=== PATIENT | female | born 1985 | race Caucasian/White ===

== ENCOUNTER 2019-08-15 11:47 | Emergency (ER) | payer BC ==
[2019-08-15] MEDS ORDERED: SODIUM CHLORIDE 0.9% 500 ML 500 ML IV ONE (12:07)
--- NOTE | 2019-08-15 12:10 | ED ---
General Adult HPI - General Chief complaint: Vaginal Bleeding Stated complaint: 11wks preg/vaginal bleeding Time Seen by Provider: 08/15/19 11:54 Source: patient, RN notes reviewed Mode of arrival: ambulatory Limitations: no limitations - History of Present Illness Initial comments: 34 year old currently 11 weeks with a LMP of 05/30/[address] Murray presents to the emergency department for vaginal bleeding. Patient states that last night she had some light spotting and then today she started having some heavier vaginal bleeding. States she is passing a few clots. Patient denies any abdominal pain associated with this. Patient did have an ultrasound at 7 weeks that confirmed an intrauterine . Patient thinks her blood type is A-. Patient denies any lightheadedness states she feels fine but is very nervous. Patient has no other complaints at this time including shortness of breath, chest pain, abdominal pain, nausea or vomiting, headache, or visual changes. - Related Data Allergies Allergy/AdvReac Type Severity Reaction Status Date / Time No Known Allergies Allergy Verified 08/15/19 11:53 Review of Systems ROS Statement: Those systems with pertinent positive or pertinent negative responses have been documented in the HPI. ROS Other: All systems not noted in ROS Statement are negative. Past Medical History Past Medical History: No Reported History History of Any Multi-Drug Resistant Organisms: None Reported Past Surgical History: No Surgical Hx Reported Past Psychological History: No Psychological Hx Reported Smoking Status: Never smoker Past Alcohol Use History: None Reported Past Drug Use History: None Reported General Exam Limitations: no limitations General appearance: alert, in no apparent distress Head exam: Present: atraumatic, normocephalic, normal inspection Eye exam: Present: normal appearance, PERRL, EOMI. Absent: scleral icterus, conjunctival injection, periorbital swelling ENT exam: Present: normal exam, mucous membranes moist Neck exam: Present: normal inspection, full ROM. Absent: tenderness, men ingismus Respiratory exam: Present: normal lung sounds bilaterally. Absent: respiratory distress, wheezes, rales, rhonchi, stridor Cardiovascular Exam: Present: regular rate, normal rhythm, normal heart sounds. Absent: systolic murmur, diastolic murmur, rubs, gallop, clicks GI/Abdominal exam: Present: soft, normal bowel sounds. Absent: distended, tenderness, guarding, rebound, rigid External exam: Present: normal external exam. Absent: erythema, swelling, lesions, lacerations, ecchymosis Speculum exam: Present: vaginal bleeding (minimal vaginal bleeding at time of exam). Absent: erythema, vaginal discharge, cervical discharge, foreign body, tissue, laceration By manual exam: Present: normal by manual exam. Absent: cervical motion tend erness, adnexal tenderness, adnexal mass, uterine enlargement, uterine tenderness Neurological exam: Present: alert Course Vital Signs 08/15/19 11:50 Temperature 98 F Pulse Rate 119 H Respiratory 18 Rate Blood Pressure 124/87 O2 Sat by Pulse 98 Oximetry Medical Decision Making - Medical Decision Making Vitals are stable. Patient initially tachycardic likely secondary to anxiety. Pelvic exam did not reveal any significant bleeding at this time. CBC CMP is unremarkable. Hemoglobin currently stable. Urinalysis is unremarkable. ultrasound shows a single viable intrauterine corresponding to ultrasound 811 weeks with estimated date of delivery 03/05/2020. Heart rate 168. At this time patient was diagnosed with threatened miscarriage. I do recommend she follows up closely with her PRIVATE TUTOR. She will return here for any worsening symptoms. - Lab Data Result diagrams: 08/15/19 12:40 08/15/19 12:40 Lab Results 08/15/19 08/15/19 08/15/19 Range/Units 12:40 12:40 12:40 WBC 7.8 (3.8-10.6) k/uL RBC 3.86 (3.80-5.40) m/uL Hgb 12.2 (11.4-16.0) gm/dL Hct 37.3 (34.0-46.0) % MCV 96.7 (80.0-100.0) fL MCH 31.5 (25.0-35.0) pg MCHC 32.6 (31.0-37.0) g/dL RDW 11.9 (11.5-15.5) % Plt Count 289 (150-450) k/uL Neutrophils % 81 % Lymphocytes % 13 % Monocytes % 4 % Eosinophils % 1 % Basophils % 0 % Neutrophils # 6.3 (1.3-7.7) k/uL Lymphocytes # 1.0 (1.0-4.8) k/uL Monocytes # 0.3 (0-1.0) k/uL Eosinophils # 0.1 (0-0.7) k/uL Basophils # 0.0 (0-0.2) k/uL Sodium 135 L (137-145) mmol/L Potassium 4.0 (3.5-5.1) mmol/L Chloride 105 (98-107) mmol/L Carbon Dioxide 23 (22-30) mmol/L Anion Gap 7 mmol/L BUN 7 (7-17) mg/dL Creatinine 0.48 L (0.52-1.04) mg/dL Est GFR (CKD-EPI)AfAm >90 (>60 ml/min/1.73 sqM) Est GFR (CKD-EPI)NonAf >90 (>60 ml/min/1.73 sqM) Glucose 109 H (74-99) mg/dL Calcium 9.3 (8.4-10.2) mg/dL Total Bilirubin 0.2 (0.2-1.3) mg/dL AST 15 (14-36) U/L ALT 22 (4-34) U/L Alkaline Phosphatase 54 (38-126) U/L Total Protein 6.5 (6.3-8.2) g/dL Albumin 3.7 (3.5-5.0) g/dL Urine Color Urine Appearance (Clear) Urine pH (5.0-8.0) Ur Specific [place] (1.001-1.035) Urine Protein (Negative) Urine Glucose (UA) (Negative) Urine Ketones (Negative) Urine Blood (Negative) Urine Nitrite (Negative) Urine Bilirubin (Negative) Urine Urobilinogen (<2.0) mg/dL Ur Leukocyte Esterase (Negative) Urine RBC (0-5) /hpf Ur Squamous Epith Cells (0-4) /hpf Urine Bacteria (None) /hpf Urine Mucus (None) /hpf Urine HCG, Qual (Not Detectd) Blood Type A Negative Blood Type Recheck No Previous Record Bld Type Recheck Status CABO Indicated 08/15/19 08/15/19 Range/Units 12:43 12:44 WBC (3.8-10.6) k/uL RBC (3.80-5.40) m/uL Hgb (11.4-16.0) gm/dL Hct (34.0-46.0) % MCV (80.0-100.0) fL MCH (25.0-35.0) pg MCHC (31.0-37.0) g/dL RDW (11.5-15.5) % Plt Count (150-450) k/uL Neutrophils % % Lymphocytes % % Monocytes % % Eosinophils % % Basophils % % Neutrophils # (1.3-7.7) k/uL Lymphocytes # (1.0-4.8) k/uL Monocytes # (0-1.0) k/uL Eosinophils # (0-0.7) k/uL Basophils # (0-0.2) k/uL Sodium (137-145) mmol/L Potassium (3.5-5.1) mmol/L Chloride (98-107) mmol/L Carbon Dioxide (22-30) mmol/L Anion Gap mmol/L BUN (7-17) mg/dL Creatinine (0.52-1.04) mg/dL Est GFR (CKD-EPI)AfAm (>60 ml/min/1.73 sqM) Est GFR (CKD-EPI)NonAf (>60 ml/min/1.73 sqM) Glucose (74-99) mg/dL Calcium (8.4-10.2) mg/dL Total Bilirubin (0.2-1.3) mg/dL AST (14-36) U/L ALT (4-34) U/L Alkaline Phosphatase (38-126) U/L Total Protein (6.3-8.2) g/dL Albumin (3.5-5.0) g/dL Urine Color Light Yellow Urine Appearance Clear (Clear) Urine pH 5.5 (5.0-8.0) Ur Specific [place] 1.008 (1.001-1.035) Urine Protein Negative (Negative) Urine Glucose (UA) Negative (Negative) Urine Ketones Negative (Negative) Urine Blood Moderate H (Negative) Urine Nitrite Negative (Negative) Urine Bilirubin Negative (Negative) Urine Urobilinogen <2.0 (<2.0) mg/dL Ur Leukocyte Esterase Negative (Negative) Urine RBC 2 (0-5) /hpf Ur Squamous Epith Cells <1 (0-4) /hpf Urine Bacteria Rare H (None) /hpf Urine Mucus Rare H (None) /hpf Urine HCG, Qual Detected (Not Detectd) Blood Type Blood Type Recheck Bld Type Recheck Status Disposition Clinical Impression: Threatened miscarriage Disposition: HOME SELF-CARE Condition: Fair Instructions (If sedation given, give patient instructions): Threatened Miscarriage (ED) Additional Instructions: Please follow up with [facility]IVATE T[facility]OR in one to 2 days. If you have any worsening symptoms return here to the emergency room. Is patient prescribed a controlled substance at d/c from ED?: No Referrals: Denys Murray MD [STAFF PHYSICIAN] - 1-2 days Time of Disposition: 14:18
[2019-08-15 13:05] LABS: Basophils % (A) 0 %; Eosinophils # (A) 0.1 k/uL (0-0.7); Eosinophils % (A) 1 %; HCT 37.3 % (34.0-46.0); HGB 12.2 gm/dL (11.4-16.0); Lymphocytes % (A) 13 %; MCH 31.5 pg (25.0-35.0); MCHC 32.6 g/dL (31.0-37.0); MCV 96.7 fL (80.0-100.0); Mean Platelet Volume 7.8; Monocytes # (A) 0.3 k/uL (0-1.0); Monocytes % (A) 4 %; Neutrophils # (A) 6.3 k/uL (1.3-7.7); Neutrophils % (A) 81 %; Platelet Count 289 k/uL (150-450); RBC 3.86 m/uL (3.80-5.40); RDW 11.9 % (11.5-15.5); WBC 7.8 k/uL (3.8-10.6)
[2019-08-15 13:08] LABS: Appearance,Urine Clear (Clear); Bacteria,Urine Rare /hpf; Bilirubin,Urine Negative (Negative); Blood,Urine Moderate (Negative); Color,Urine Light Yellow; Glucose,Urine (UA) Negative (Negative); Ketones,Urine Negative (Negative); Leukocyte Esterase,Urine Negative (Negative); Mucus,Urine Rare /hpf; Nitrite,Urine Negative (Negative); PH, Urine 5.5 (5.0-8.0); Protein,Urine Negative (Negative); RBC,Urine 2 /hpf (0-5); Specific Gravity,Urine 1.008 (1.001-1.035); Squamous Epithelial Cell,Urine <1 /hpf (0-4); Urobilinogen,Urine <2.0 mg/dL (<2.0)
--- NOTE | 2019-08-15 13:24 | US ---
EXAMINATION TYPE: Transabdominal DATE OF EXAM: 08/15/2019 1:01 PM COMPARISON: NONE CLINICAL HISTORY: bleeding. EXAM PERFORMED: Transabdominal (TA) EXAM MEASUREMENTS: GESTATIONAL AGE / DATING Physician Established: (11 weeks/0 days) EDC: 03/05/2020 Dates by LMP: (11 weeks/0 days) EDC: 03/05/2020 Dates by First Scan: No previous this is first scan ( Dates by Current Scan for: (11 weeks/0 days) EDC: 03/05/2020 MATERNAL ANATOMY Uterus: 10.8 x 6.5 x 8.3 cm Right Ovary: 2.3 x 1.4 x 1.8 cm Left Ovary: 2.2 x 1.3 x 1.4 cm Post CDS / Adnexa: wnl Presence of free fluid: No Presence of corpus luteal cyst: No Presence of subchorionic bleed: No GESTATION / SURVEY CRL: 4.1 cm (11 weeks/0 days) Yolk Sac (normal less than 6mm): 5 mm Heart Rate: 168 bpm Rhythm: Normal IUP: Viable IUP Date of LMP: Unsure Beta HcG (if available): Not available at this time Viable IUP, measurements consistent with dates. IMPRESSION: Single viable intrauterine corresponding to ultrasound age 11 weeks 0 days with estimated d ate of delivery 03/05/2020 by today's exam.
[2019-08-15 13:25] LABS: ALT 22 U/L (4-34); AST 15 U/L (14-36); African American GFR (CKD) >90 (>60 ml/min/1.73 sqM); Albumin 3.7 g/dL (3.5-5.0); Alkaline Phosphatase 54 U/L (38-126); Anion Gap 7 mmol/L; Blood Urea Nitrogen 7 mg/dL (7-17); Calcium 9.3 mg/dL (8.4-10.2); Carbon Dioxide 23 mmol/L (22-30); Chloride 105 mmol/L (98-107); Glucose 109 mg/dL (74-99); Non-African American GFR(CKD) >90 (>60 ml/min/1.73 sqM); Sodium 135 mmol/L (137-145); Total Bilirubin 0.2 mg/dL (0.2-1.3); Total Protein 6.5 g/dL (6.3-8.2)
[2019-08-15] MEDS ORDERED: Rhogam IMMUNE GLOBULIN 1,500 UNIT/1 ML IM ONE (14:02)
[2019-08-15 15:58] VITALS: BP 118/68; PULSE 85; RESP 17; TEMP 98.2
[2019-08-18 12:53] LABS: C. trachomatis,PCR Negative (Neg,Equiv); Chlamydia trachomatis Source Vagina; N. gonorrhoeae,PCR Negative (Neg,Equiv); Neisseria Source Vagina
== END 2019-08-15 15:58 | disposition home or self-care (01) ==
LOC: EC 11:47
DX: O20.0 Threatened abortion (principal); O99.341 Other mental disorders complicating pregnancy, first trimester; F41.9 Anxiety disorder, unspecified; Z3A.11 11 weeks gestation of pregnancy
CPT/HCPCS: 99284; 96360; 96372; 36415; 86900; 86901; 80053; 85025; 86850; 81001; 81025; 84702; 87491; 87591; 87070; 76801; J2791

== ENCOUNTER 2019-08-16 14:51 | Emergency (ER) | payer BC ==
[2019-08-16 15:00] VITALS: RESP 18
[2019-08-16 16:01] LABS: Basophils % (A) 0 %; Eosinophils # (A) 0.1 k/uL (0-0.7); Eosinophils % (A) 2 %; HCT 36.8 % (34.0-46.0); HGB 12.9 gm/dL (11.4-16.0); Lymphocytes # (A) 1.1 k/uL (1.0-4.8); Lymphocytes % (A) 11 %; MCHC 35.1 g/dL (31.0-37.0); MCV 96.9 fL (80.0-100.0); Mean Platelet Volume 7.9; Monocytes # (A) 0.3 k/uL (0-1.0); Monocytes % (A) 3 %; Neutrophils # (A) 7.8 k/uL (1.3-7.7); Neutrophils % (A) 83 %; Platelet Count 288 k/uL (150-450); RBC 3.79 m/uL (3.80-5.40); WBC 9.4 k/uL (3.8-10.6)
[2019-08-16 16:04] LABS: Appearance,Urine Clear (Clear); Bilirubin,Urine Negative (Negative); Blood,Urine Moderate (Negative); Color,Urine Yellow; Glucose,Urine (UA) Negative (Negative); Ketones,Urine Negative (Negative); Leukocyte Esterase,Urine Negative (Negative); Mucus,Urine Rare /hpf; Nitrite,Urine Negative (Negative); PH, Urine 5.5 (5.0-8.0); Protein,Urine Negative (Negative); RBC,Urine 93 /hpf (0-5); Specific Gravity,Urine 1.018 (1.001-1.035); Urobilinogen,Urine <2.0 mg/dL (<2.0); WBC,Urine 1 /hpf (0-5)
[2019-08-16 16:13] LABS: INR 0.9 (<1.2); Partial Thromboplastin Time 22.1 sec (22.0-30.0); Prothrombin Time 9.3 sec (9.0-12.0)
[2019-08-16 16:25] LABS: ALT 17 U/L (4-34); AST 16 U/L (14-36); African American GFR (CKD) >90 (>60 ml/min/1.73 sqM); Albumin 3.7 g/dL (3.5-5.0); Alkaline Phosphatase 55 U/L (38-126); Anion Gap 8 mmol/L; Blood Urea Nitrogen 8 mg/dL (7-17); Calcium 9.4 mg/dL (8.4-10.2); Carbon Dioxide 21 mmol/L (22-30); Chloride 106 mmol/L (98-107); Glucose 130 mg/dL (74-99); Non-African American GFR(CKD) >90 (>60 ml/min/1.73 sqM); Potassium 3.9 mmol/L (3.5-5.1); Sodium 135 mmol/L (137-145); Total Bilirubin <0.1 mg/dL (0.2-1.3); Total Protein 6.6 g/dL (6.3-8.2)
--- NOTE | 2019-08-16 17:22 | ED ---
General Adult HPI - General Chief complaint: Vaginal Bleeding Stated complaint: 11 weeks , Vaginal bleeding Time Seen by Provider: 08/16/19 15:11 Source: patient - History of Present Illness Initial comments: The patient is a 34-year-old female who is currently 11 weeks presents to the emergency room with report of vaginal bleeding. Patient was seen previously in the emergency department for similar complaint yesterday. She did have an ultrasound performed which demonstrated a viable intrauterine dated around 11 weeks. She was given Rhogam for her negative blood type. States that she went home and continued to have bleeding overnight. Bleeding to get heavier this morning for which she passed clots and what she thought was tissue. She denies any abdominal or pelvic pain. No fevers or chills. No nausea or vomiting denies any abdominal trauma. He contacted her [employer]ANT. Denies any lightheadedness or shortness of breath. No other alleviating, precipitating or modifying factors - Related Data Allergies Allergy/AdvReac Type Severity Reaction Status Date / Time No Known Allergies Allergy Verified 08/16/19 15:00 Review of Systems ROS Statement: Those systems with pertinent positive or pertinent negative responses have been documented in the HPI. ROS Other: All systems not noted in ROS Statement are negative. Past Medical History Past Medical History: No Reported History History of Any Multi-Drug Resistant Organisms: None Reported Past Surgical History: No Surgical Hx Reported Past Psychological History: No Psychological Hx Reported Smoking Status: Never smoker Past Alcohol Use History: None Reported Past Drug Use History: None Reported General Exam General appearance: alert, in no apparent distress Head exam: Present: atraumatic, normocephalic, normal inspection Eye exam: Present: normal appearance, PERRL, EOMI. Absent: scleral icterus, conjunctival injection, periorbital swelling ENT exam: Present: normal exam, mucous membranes moist Neck exam: Present: normal inspection. Absent: tenderness, meningismus, lymphadenopathy Respiratory exam: Present: normal lung sounds bilaterally. Absent: respiratory distress, wheezes, rales, rhonchi, stridor Cardiovascular Exam: Present: regular rate, normal rhythm, normal heart sounds. Absent: systolic murmur, diastolic murmur, rubs, gallop, clicks GI/Abdominal exam: Present: soft, normal bowel sounds. Absent: distended, tenderness, guarding, rebound, rigid External exam: Present: normal external exam. Absent: erythema, swelling, lesions, lacerations, ecchymosis Speculum exam: Present: vaginal bleeding, tissue, other (os appears opening and exuding small dark clots). Absent: foreign body, laceration Extremities exam: Present: normal inspection, full ROM, normal capillary refill. Absent: tenderness, pedal edema, joint swelling, calf tenderness Back exam: Present: normal inspection Neurological exam: Present: alert, oriented X3, CN II-XII intact Psychiatric exam: Present: normal affect, normal mood Skin exam: Present: warm, dry, intact, normal color. Absent: rash Course Vital Signs 08/16/19 08/16/19 14:56 17:37 Temperature 98.7 F 98.2 F Pulse Rate 91 88 Respiratory 18 18 Rate Blood Pressure 120/79 107/71 O2 Sat by Pulse 98 100 Oximetry Medical Decision Making - Medical Decision Making Upon arrival the patient was placed into room 22. A thorough history and physical exam was performed. I did repeat laboratory studies in the patient. At bedside ultrasound was performed which demonstrated an intrauterine with positive heart tones at 136 bpm. Positive movement. Laboratory studies demonstrate a hemoglobin of 12.9. The patient's previous 12.2. Urinalysis shows moderate blood with 93 red blood cells. Beta Quant has fallen some to 70,745. Pelvic was performed under sterile conditions which does demonstrate a small amount of blood. Os does appear open with a small amount of clotted blood protruding. I discussed diagnosis, differential and treatment options. I recommended pelvic rest at home. She is to follow-up with her OBGYN in regards to her vaginal bleeding within 2-[address] Murray is aware of her current state. I informed her about the concerning for miscarriage at this time and the need for strict return parameters. Return parameters were discussed with the patient. She understood this. If she has any new or worsening symptoms she should return to the emergency room. Patient agreement with the t reatment plan she is discharged home in stable condition - Lab Data Result diagrams: 08/16/19 15:45 08/16/19 15:45 Lab Results 08/16/19 08/16/19 08/16/19 Range/Units 15:45 15:45 15:45 WBC 9.4 (3.8-10.6) k/uL RBC 3.79 L (3.80-5.40) m/uL Hgb 12.9 (11.4-16.0) gm/dL Hct 36.8 (34.0-46.0) % MCV 96.9 (80.0-100.0) fL MCH 34.0 (25.0-35.0) pg MCHC 35.1 (31.0-37.0) g/dL RDW 12.0 (11.5-15.5) % Plt Count 288 (150-450) k/uL Neutrophils % 83 % Lymphocytes % 11 % Monocytes % 3 % Eosinophils % 2 % Basophils % 0 % Neutrophils # 7.8 H (1.3-7.7) k/uL Lymphocytes # 1.1 (1.0-4.8) k/uL Monocytes # 0.3 (0-1.0) k/uL Eosinophils # 0.1 (0-0.7) k/uL Basophils # 0.0 (0-0.2) k/uL PT (9.0-12.0) sec INR (<1.2) APTT (22.0-30.0) sec Sodium 135 L (137-145) mmol/L Potassium 3.9 (3.5-5.1) mmol/L Chloride 106 (98-107) mmol/L Carbon Dioxide 21 L (22-30) mmol/L Anion Gap 8 mmol/L BUN 8 (7-17) mg/dL Creatinine 0.43 L (0.52-1.04) mg/dL Est GFR (CKD-EPI)AfAm >90 (>60 ml/min/1.73 sqM) Est GFR (CKD-EPI)NonAf >90 (>60 ml/min/1.73 sqM) Glucose 130 H (74-99) mg/dL Calcium 9.4 (8.4-10.2) mg/dL Total Bilirubin <0.1 L (0.2-1.3) mg/dL AST 16 (14-36) U/L ALT 17 (4-34) U/L Alkaline Phosphatase 55 (38-126) U/L Total Protein 6.6 (6.3-8.2) g/dL Albumin 3.7 (3.5-5.0) g/dL HCG, Quant 46422.2 mIU/mL Urine Color Yellow Urine Appearance Clear (Clear) Urine pH 5.5 (5.0-8.0) Ur Specific [place] 1.018 (1.001-1.035) Urine Protein Negative (Negative) Urine Glucose (UA) Negative (Negative) Urine Ketones Negative (Negative) Urine Blood Moderate H (Negative) Urine Nitrite Negative (Negative) Urine Bilirubin Negative (Negative) Urine Urobilinogen <2.0 (<2.0) mg/dL Ur Leukocyte Esterase Negative (Negative) Urine RBC 93 H (0-5) /hpf Urine WBC 1 (0-5) /hpf Urine Mucus Rare H (None) /hpf 08/16/19 Range/Units 15:45 WBC (3.8-10.6) k/uL RBC (3.80-5.40) m/uL Hgb (11.4-16.0) gm/dL Hct (34.0-46.0) % MCV (80.0-100.0) fL MCH (25.0-35.0) pg MCHC (31.0-37.0) g/dL RDW (11.5-15.5) % Plt Count (150-450) k/uL Neutrophils % % Lymphocytes % % Monocytes % % Eosinophils % % Basophils % % Neutrophils # (1.3-7.7) k/uL Lymphocytes # (1.0-4.8) k/uL Monocytes # (0-1.0) k/uL Eosinophils # (0-0.7) k/uL Basophils # (0-0.2) k/uL PT 9.3 (9.0-12.0) sec INR 0.9 (<1.2) APTT 22.1 (22.0-30.0) sec Sodium (137-145) mmol/L Potassium (3.5-5.1) mmol/L Chloride (98-107) mmol/L Carbon Dioxide (22-30) mmol/L Anion Gap mmol/L BUN (7-17) mg/dL Creatinine (0.52-1.04) mg/dL Est GFR (CKD-EPI)AfAm (>60 ml/min/1.73 sqM) Est GFR (CKD-EPI)NonAf (>60 ml/min/1.73 sqM) Glucose (74-99) mg/dL Calcium (8.4-10.2) mg/dL Total Bilirubin (0.2-1.3) mg/dL AST (14-36) U/L ALT (4-34) U/L Alkaline Phosphatase (38-126) U/L Total Protein (6.3-8.2) g/dL Albumin (3.5-5.0) g/dL HCG, Quant mIU/mL Urine Color Urine Appearance (Clear) Urine pH (5.0-8.0) Ur Specific [place] (1.001-1.035) Urine Protein (Negative) Urine Glucose (UA) (Negative) Urine Ketones (Negative) Urine Blood (Negative) Urine Nitrite (Negative) Urine Bilirubin (Negative) Urine Urobilinogen (<2.0) mg/dL Ur Leukocyte Esterase (Negative) Urine RBC (0-5) /hpf Urine WBC (0-5) /hpf Urine Mucus (None) /hpf Disposition Clinical Impression: Threatened miscarriage Disposition: HOME SELF-CARE Condition: Stable Instructions (If sedation given, give patient instructions): Threatened Miscarriage (ED) Additional Instructions: Please follow-up with Dr. Murray on Sunday. Remain on pelvic rest. Return to the emergency department for any new or worsening symptoms Is patient prescribed a controlled substance at d/c from ED?: No Referrals: Denys Murray MD [STAFF PHYSICIAN] - 1-2 days None,Stated [Primary Care Provider] - 1-2 days Time of Disposition: 17:22
[2019-08-16 17:38] VITALS: BP 107/71; PULSE 88; TEMP 98.2
[2019-08-16 17:42] LABS: HCG,Quantitative Serum 70745.2 mIU/mL
== END 2019-08-16 17:39 | disposition home or self-care (01) ==
LOC: EC 14:51
DX: O20.0 Threatened abortion (principal); Z3A.11 11 weeks gestation of pregnancy
CPT/HCPCS: 36415; 80053; 81001; 84702; 85025; 85610; 85730; 99284

== ENCOUNTER 2020-03-05 14:54 | Inpatient (IN) | payer BC ==
[2020-03-09] MEDS ORDERED: TERBUTALINE 1 MG/ML VIAL SQ PRN (06:35)
[2020-03-09] MEDS ORDERED: LIDOCAINE 0.5% (PF) 5 MG/ML (50 ML SDV) SQ PRN (06:35)
[2020-03-09] MEDS ORDERED: METHYLERGONOVINE 0.2 MG/ML 1 ML AMP IM PRN (06:35)
[2020-03-09] MEDS ORDERED: OXYTOCIN 10 UNIT/ML 1 ML VIAL IM PRN (06:35)
[2020-03-09] MEDS ORDERED: CARBOPROST TROMETHAMINE 250 MCG/ML 1 ML AMP IM PRN (06:35)
[2020-03-09] MEDS ORDERED: OXYTOCIN 30 UNITS/500 ML NS 30 UNIT in SALINE 1 500ML.BAG IV SCH (06:45)
[2020-03-09] MEDS: LACTATED RINGERS 1,000 ML IV SCH ×2 (07:04→12:29)
[2020-03-09 07:20] LABS: Basophils % (A) 0 %; Eosinophils # (A) 0.1 k/uL (0-0.7); Eosinophils % (A) 0 %; HCT 35.3 % (34.0-46.0); HGB 12.5 gm/dL (11.4-16.0); Lymphocytes # (A) 1.3 k/uL (1.0-4.8); Lymphocytes % (A) 11 %; MCH 33.9 pg (25.0-35.0); MCHC 35.3 g/dL (31.0-37.0); MCV 95.9 fL (80.0-100.0); Mean Platelet Volume 8.2; Monocytes # (A) 0.5 k/uL (0-1.0); Monocytes % (A) 5 %; Neutrophils # (A) 9.4 k/uL (1.3-7.7); Neutrophils % (A) 82 %; Platelet Count 237 k/uL (150-450); RBC 3.69 m/uL (3.80-5.40); RDW 13.3 % (11.5-15.5); WBC 11.4 k/uL (3.8-10.6)
[2020-03-09] MEDS ORDERED: BUTORPHANOL 1 MG/ML 1 ML VIAL IV PRN (08:43)
--- NOTE | 2020-03-09 08:48 | P.HPOB ---
History of Present Illness H&P Date: 03/09/20 Chief Complaint: 40-4/7 weeks, induction The patient is a 35-year-old 1 para 0 admitted at 40-4/7 weeks as established by last menstrual period and confirmed by seven-week ultrasound. She is admitted for postdates induction of labor with all signs reassuring. Her has been entirely uncomplicated and group B strep status is negative. On labor and delivery, all signs reassuring with a category 1 heart rate tracing. She does fall into the category of advanced maternal age and declined testing for trisomy. She is additionally Rh- and received RhoGAM twice during the , once in the early first trimester for bleeding and then again at the standard time of 28 weeks. Obstetrical history: 1 para 0 with current statistics listed in history present illness. EDC of 03/05/2020 was established by last menstrual period and confirmed by seven-week ultrasound. Laboratory workup demonstrates a blood type of A- with a positive antibody screen for anti-D secondary to RhoGAM given early in the . Rubella status is immune. The remainder of the laboratory workup was within normal limits aside from elevated 1 hour Glucola followed by a normal three-hour glucose tolerance test. Group B strep status is negative. Gynecologic history: Unremarkable with no history of any infections to include STDs. Review of Systems Review of systems is confined to history of present illness. Past Medical History Past Medical History: No Reported History History of Any Multi-Drug Resistant Organisms: None Reported Past Surgical History: No Surgical Hx Reported Additional Past Surgical History / Comment(s): Fosters tooth extraction Past Anesthesia/Blood Transfusion Reactions: No Reported Reaction Past Psychological History: No Psychological Hx Reported Smoking Status: Never smoker Past Alcohol Use History: None Reported Past Drug Use History: None Reported - Past Family History Father Family Medical History: Diabetes Mellitus, GERD/Reflux Additional Family Medical History / Comment(s): Neuropathy Mother Family Medical History: Asthma, GERD/Reflux Medications and Allergies Home Medications Medication Instructions Recorded Confirmed Type Pnv No.95/Ferrous Fum/Folic AC 1 each PO DAILY 03/09/20 03/09/20 History [ Multivitamin Tablet] Allergies Allergy/AdvReac Type Severity Reaction Status Date / Time No Known Allergies Allergy Verified 03/09/20 06:34 Exam Vital Signs Temp Pulse Resp BP 03/09/20 06:36 97.5 F L 106 H 16 124/71 Intake and Output 03/08/20 03/09/20 03/09/20 22:59 06:59 14:59 Other: Weight 102.058 kg In general, this is a well-developed, well-nourished white female in no acute distress. Her heart has a regular rhythm and rate without murmur. Her lungs are clear to auscultation bilaterally in all mccrary. Her abdomen is gravid, nondistended, has normal active bowel sounds, is soft, nontender, and without any palpable masses aside from the uterine fundus. Her extremities are without any cyanosis, clubbing, or edema and are nontender to palpation bilaterally. Digital cervical examination demonstrates her cervix to be 2 cm dilated, 60% effaced, the vertex in presentation at -2 station. Artificial rupture of membranes is carried out demonstrating clear fluid. Results Result Diagrams: 03/09/20 07:03 Abnormal Lab Results - Last 24 Hours (Table) 03/09/20 Range/Units 07:03 WBC 11.4 H (3.8-10.6) k/uL RBC 3.69 L (3.80-5.40) m/uL Neutrophils # 9.4 H (1.3-7.7) k/uL Assessment and Plan (1) Post-dates Current Visit: Yes Status: Acute Code(s): O48.0 - POST-TERM SNOMED Code(s): 11139098 Plan: Pitocin augmentation has been started and artificial rupture of membranes carried out. She will have close maternal and surveillance and expectant management will be practiced. She is a good candidate for either IV or epidural analgesia, whichever she may choose.
[2020-03-09] MEDS ORDERED: SODIUM CHLORIDE 0.9% 100 ML BAG ONE (12:24)
[2020-03-09] MEDS ORDERED: ROPIVACAINE 5MG/ML 20ML VIAL ONE (12:24)
[2020-03-09] MEDS ORDERED: fentaNYL (PF) 50 MCG/ML 5 ML AMP ONE (12:24)
[2020-03-09] MEDS ORDERED: CITRIC ACID-SODIUM CITRATE 15 ML CUP PO ONE (20:46)
[2020-03-09] MEDS ORDERED: OXYTOCIN 10 UNIT/ML 1 ML VIAL ONE (20:58)
[2020-03-09] MEDS ORDERED: KETOROLAC 15 MG/ML 1 ML VIAL ONE (20:58)
[2020-03-09] MEDS ORDERED: ONDANSETRON 4 MG/2 ML VIAL ONE (20:58)
[2020-03-09] MEDS ORDERED: PHENYLEPHRINE 10 MG/ML VIAL ONE (20:58)
[2020-03-09] MEDS ORDERED: CHLOROPROCAINE 3% 30 MG/ML 20 ML VIAL ONE (20:58)
[2020-03-09] MEDS ORDERED: NALBUPHINE 10 MG/ML (1 ML AMP) IV PRN (21:20)
[2020-03-09] MEDS ORDERED: ONDANSETRON 4 MG/2 ML VIAL IVP PRN ×2 (21:20→21:49)
[2020-03-09] MEDS ORDERED: NALOXONE 0.4 MG/ML 1 ML VIAL IV PRN (21:20)
[2020-03-09] MEDS ORDERED: diphenhydrAMINE 50 MG/ML 1 ML VIAL IVP PRN ×3 (21:20→21:49)
[2020-03-09] MEDS ORDERED: HYDROmorphone 0.5 MG/0.5 ML SYRINGE IVP PRN (21:20)
[2020-03-09] MEDS ORDERED: LANOLIN CREAM 5 GM TUBE TOPICAL PRN (21:49)
[2020-03-09] MEDS ORDERED: diphenhydrAMINE 25 MG CAP PO PRN (21:49)
[2020-03-09] MEDS ORDERED: diphenhydrAMINE 50 MG CAP PO PRN (21:49)
[2020-03-09] MEDS ORDERED: IBUPROFEN 600 MG TAB PO PRN (21:49)
[2020-03-09] MEDS ORDERED: HYDROcodone/APAP 7.5-325MG 1 EACH TAB PO PRN (21:49)
[2020-03-09] MEDS ORDERED: ACETAMINOPHEN TAB 325 MG TAB PO PRN (21:49)
[2020-03-09] MEDS ORDERED: SIMETHICONE 80 MG CHEWABLE PO PRN (21:49)
[2020-03-09] MEDS ORDERED: HYDROcodone/APAP 5-325MG 1 EACH TAB PO PRN (21:49)
[2020-03-09] MEDS ORDERED: METOCLOPRAMIDE 5 MG/ML 2 ML VIAL IVP PRN (21:49)
[2020-03-09] MEDS ORDERED: ZOLPIDEM 5 MG TAB PO PRN (21:49)
--- NOTE | 2020-03-09 21:59 | P.OP ---
Date of Procedure: 03/09/20 Preoperative Diagnosis: #1. 40-4/7 weeks intrauterine #2. Rh- #3. Arrest of descent #4. occiput posterior Postoperative Diagnosis: Same Procedure(s) Performed: #1. Primary low-transverse section Anesthesia: epidural Surgeon: Denys Murray Electrician Yard #1: Basilia Payne Estimated Blood Loss (ml): 600 IV fluids (ml): 900 Urine output (ml): 50 Pathology: none sent Condition: stable Disposition: floor Operative Findings: Preoperatively, the patient had reached complete and had been pushing for approximate 45 minutes or and hour with no descent of the station below 0 station. She was felt to have a very narrow pelvic arch and the fetus was thought to be in left occiput posterior position. Given the findings, the patient was given the option and agreed to proceed with primary low-transverse section. She was taken the operating room where she was delivered of a viable 8 lbs. 5 oz. baby boy with Apgars of 9 at 1 minute and 9 at 5 minutes delivered in the left occiput posterior position. There was a loose nuchal cord 1 which was reduced following delivery of the head. The placenta was delivered manually, intact, and grossly normal with a grossly normal three-vessel cord. The uterus, tubes, and ovaries were entirely normal to inspection. Following the procedure the urine was either slightly blood-tinged or extremely concentrated which was the case prior to the procedure as well. Description of Procedure: The patient was prepped and draped in usual fashion after epidural anesthesia was bolused by the anesthesiologist. A Pfannenstiel incision was made and extended into the abdominal cavity without difficulty. The bladder peritoneum was elevated, incised, and reflected distally as it was very high within the incisional area. A 2 cm incision was made in the transverse plane of the lower uterine segment to enter the uterus at which time clear fluid was again noted. The head was encountered deep within the pelvis in the left occiput posterior position. It was delivered up and through the incision where the nose and mouth were thoroughly suctioned. The nuchal cord was reduced and the remainder of the infant delivered onto the field where the cord was doubly clamped, cut, and the infant passed for resuscitative measures with weight and Apgars as noted above. The placenta was delivered manually and intact as noted above. The uterus was exteriorized and the interior cavity of the uterus swept of any remaining placental or membranous fragments. The margins of the incision were grasped with Fernández clamps and the incision closed in 2 layers. The first layer was a running locking stitch of 0 chromic catgut followed by a running imbricating layer of 0 chromic catgut. The last few stitches of the right angle were locked as well secondary to a small hematoma noted developed just above the incision. Observation of the hematoma demonstrated to not be expanding. The posterior cul-de-sac was suctioned with a guard and the uterine and ovarian findings are normal as noted above. The uterus was replaced within the abdominal cavity and the gutters swept of any remaining blood, fluid, or clot. The incision was reexamined and any small points of bleeding made hemostatic with the Bovie. Once hemostasis was achieved, the parietal peritoneum was loosely reapproximated and the layer of muscles examined and made hemostatic with the Bovie. The fascia was closed with 2 running stitches of 0 Vicryl proceeding from the lateral margins to the midpoint. The subcutaneous tissues were irrigated, made hemostatic with the Bovie, and reapproximated with a running stitch of 30 plain catgut. The skin was reapproximated with a running subcuticular stitch of 4-0 Vicryl from margin to margin followed by half-inch Steri-Strips placed with Mastisol. Estimated blood loss for the case was approximate 600 mL. There were no complications. All sponge, instrument, and needle counts were correct. The patient tolerated the procedure well and proceeded to the recovery room in stable condition. Both mother and infant are resting comfortably in recovery.
[2020-03-09] MEDS ORDERED: OXYTOCIN 20 UNITS/1000 ML NS 1,000 ML IV SCH (22:00)
[2020-03-10 01:09] VITALS: RESP 16
[2020-03-10] MEDS: KETOROLAC 15 MG/ML 1 ML VIAL IVP PRN ×3 (04:30→19:57)
[2020-03-10] MEDS: LACTATED RINGERS 1,000 ML IV SCH ×3 (05:31→12:36)
--- NOTE | 2020-03-10 06:05 | P.PN ---
Progress Note - Text Progress Note Date: 03/10/20 Patient's postop day 1 from surgery and . Her in situ epidural was used for the surgery and section. At the end of the surgery and section 3 mg of preservative-free morphine were given in the epidural space. The epidural was discontinued. The patient did very well. She is comfortable this morning. She has had return of bowel and bladder function. She is able to ambulate. Pain is 2 out of 10 with ambulation. She is received 15 mg of Toradol for pain. There is mild pruritus. Her VAS is 2 out of 10 today
[2020-03-10 06:58] LABS: Basophils % (A) 0 %; Eosinophils % (A) 0 %; HCT 29.9 % (34.0-46.0); HGB 10.4 gm/dL (11.4-16.0); Lymphocytes % (A) 7 %; MCH 33.4 pg (25.0-35.0); MCHC 34.8 g/dL (31.0-37.0); MCV 95.8 fL (80.0-100.0); Mean Platelet Volume 9.2; Monocytes # (A) 0.5 k/uL (0-1.0); Monocytes % (A) 4 %; Neutrophils # (A) 11.9 k/uL (1.3-7.7); Neutrophils % (A) 88 %; Platelet Count 194 k/uL (150-450); RBC 3.12 m/uL (3.80-5.40); RDW 13.5 % (11.5-15.5); WBC 13.5 k/uL (3.8-10.6)
--- NOTE | 2020-03-10 08:41 | P.PNOBGPC ---
Subjective - Subjective Patient reports: Reports appetite normal, Reports voiding normally, Reports pain well controlled, Reports ambulating normally : doing well, nursing well Objective - Vital Signs Latest vital signs: Vital Signs Temp Pulse Resp BP Pulse Ox 03/10/20 05:25 16 03/10/20 03:29 97.8 F 64 16 95/50 03/10/20 02:00 16 03/10/20 00:21 16 03/10/20 00:00 98.0 F 78 16 110/57 03/09/20 23:47 98.0 F 74 18 96/52 03/09/20 23:17 76 16 106/60 03/09/20 22:47 83 16 98/56 97 03/09/20 22:32 74 16 91/55 95 03/09/20 22:21 16 96 03/09/20 22:17 77 16 95/55 03/09/20 22:02 81 16 93/62 03/09/20 21:47 98.3 F 75 16 104/60 96 Intake and Output 03/09/20 03/10/20 03/10/20 22:59 06:59 14:59 Intake Total 200 Output Total 250 1200 Balance -250 -1000 Intake: Oral 200 Output: Urine 250 600 Straight 250 Uretheral (Kasper) 300 Estimated Blood Loss 600 - Exam Extremities: Present: normal, edema (1+ bilateral lower extremity edema to just below the knee.) Abdomen: Present: normal appearance, soft. Absent: distention, tenderness Incision: Present: normal, dry, intact Uterus: Present: normal, firm (The uterine fundus is tonic and a peripherally tender well below the umbilicus.) - Labs Labs: Abnormal Lab Results - Last 24 Hours (Table) 03/10/20 Range/Units 06:35 WBC 13.5 H (3.8-10.6) k/uL RBC 3.12 L (3.80-5.40) m/uL Hgb 10.4 L (11.4-16.0) gm/dL Hct 29.9 L (34.0-46.0) % Neutrophils # 11.9 H (1.3-7.7) k/uL Assessment and Plan (1) Post-dates Current Visit: Yes Status: Acute Code(s): O48.0 - POST-TERM SNOMED Code(s): 46071561 (2) Status post section Current Visit: Yes Status: Acute Code(s): Z98.891 - HISTORY OF UTERINE SCAR FROM PREVIOUS SURGERY SNOMED Code(s): 625706545 Plan: Continue routine postoperative care. I have encouraged the patient to ambulate in the hallways routinely. She is tolerating regular diet at this point. I would anticipate possible discharge home tomorrow morning pending no complications.
[2020-03-10] MEDS: SENNOSIDES-DOCUSATE SODIUM 1 EACH TAB PO SCH ×2 (12:37→19:57)
[2020-03-11] MEDS: SENNOSIDES-DOCUSATE SODIUM 1 EACH TAB PO SCH (07:45)
[2020-03-11 08:11] VITALS: BP 92/61; PULSE 91; TEMP 97.6
--- NOTE | 2020-03-11 10:36 | P.DS ---
Providers Date of admission: 03/09/20 06:14 Expected date of discharge: 03/11/20 Attending physician: Denys Murray Primary care physician: Stated None - Discharge Diagnosis(es) (1) Post-dates Current Visit: Yes Status: Acute (2) Status post section Current Visit: Yes Status: Acute Hospital Course: The patient is a 35-year-old 1 para 0 admitted at 40-4/7 weeks by good dating parameters perches admitted for postdates induction with all signs reassuring. Her was uncomplicated and group B strep status was negative. On labor and delivery, she had Pitocin started followed by artificial rupture of membranes. She later had an epidural catheter placed for analgesia. She ultimately progressed to complete and began pushing but was found to have arrest of descent in the third stage. She was taken the operating room where she was delivered of a viable 8 lbs. 5 oz. baby boy with Apgars of 9 at 1 minute and 9 at 5 minutes. Her postoperative course has been unremarkable with vital signs remaining stable and her temperature was afebrile throughout. She was deemed stable for discharge on and postoperative day #2 to follow-up in the office in 2 weeks for an incision check and 6 weeks routinely. Discharge instructions included calling for any significantly increased bleeding or foul- smelling lochia, significantly increased fever or abdominal pain, perineal complaints, breast complaints, incisional complaints, or anything else that concerned her. She was additionally instructed to have nothing in the vagina for at least 6 weeks time to include intercourse and to abstain from any heavy lifting over the same period of time she was last instructed to do no driving until off of all pain medications or 2 weeks' time, whichever came first. She understood her instructions and agrees to follow up as noted above. Discharge medications included continued vitamins as she has opted to breast-feed as well as a prescription for [place] 5/3 and 25 mg, 1-2 by mouth every 6 hours when necessary pain, #20 dispensed with no refills. She was additionally to use [id number] analgesic pain medications as needed. Maternal blood type is A- and cord blood was sent for evaluation for the necessity of RhoGAM. Rubella status is immune. Procedures: #1. Pitocin induction #2. Artificial rupture of membranes #3. Epidural analgesia 4. Primary low-transverse section Patient Condition at Discharge: Stable Plan - Discharge Summary New Discharge Prescriptions: No Action Pnv No.95/Ferrous Fum/Folic AC [ Multivitamin Tablet] 1 each PO DAILY Discharge Medication List Pnv No.95/Ferrous Fum/Folic AC [ Multivitamin Tablet] 1 each PO DAILY 03/09/20 [History] Follow up Appointment(s)/Referral(s): Denys Murray MD [STAFF PHYSICIAN] - 2 Weeks Discharge Disposition: HOME SELF-CARE
== END 2020-03-11 13:09 | disposition home or self-care (01) | DRG 788 ==
LOC: 4FBP 03-09 06:14
PROVIDERS: ADMIT Obstetrics & Gynecology; ATTEND Obstetrics & Gynecology
PROC: 10D00Z1 Extraction of Products of Conception, Low, Open Approach (ICD-10-PCS; principal; 2020-03-09 06:00)
PROC: 3E0R3BZ Introduction of Anesthetic Agent into Spinal Canal, Percutaneous Approach (ICD-10-PCS; principal; 2020-03-09 06:00)
PROC: 10907ZC Drainage of Amniotic Fluid, Therapeutic from Products of Conception, Via Natural or Artificial Opening (ICD-10-PCS; principal; 2020-03-09 06:00)
PROC: 3E033VJ Introduction of Other Hormone into Peripheral Vein, Percutaneous Approach (ICD-10-PCS; principal; 2020-03-09 06:00)
PROC: 00HU33Z Insertion of Infusion Device into Spinal Canal, Percutaneous Approach (ICD-10-PCS; principal; 2020-03-09 06:00)
DX: O48.0 Post-term pregnancy (principal); O26.893 Other specified pregnancy related conditions, third trimester; O62.1 Secondary uterine inertia; O69.81X0 Labor and delivery complicated by cord around neck, without compression, not applicable or unspecified; O46.8X1 Other antepartum hemorrhage, first trimester; Z67.11 Type A blood, Rh negative; O99.72 Diseases of the skin and subcutaneous tissue complicating childbirth; L29.9 Pruritus, unspecified; Z37.0 Single live birth; Z3A.40 40 weeks gestation of pregnancy; Z79.899 Other long term (current) drug therapy; Z98.818 Other dental procedure status; Z83.3 Family history of diabetes mellitus; Z82.5 Family history of asthma and other chronic lower respiratory diseases; Z83.79 Family history of other diseases of the digestive system
CPT/HCPCS: 85025; 86850; 86900; 86901

== ENCOUNTER 2021-11-14 08:01 | Inpatient (IN) | payer BC ==
[2021-11-14] MEDS ORDERED: CITRIC ACID-SODIUM CITRATE 15 ML CUP PO ONE (08:27)
[2021-11-14 08:53] LABS: Basophils % (A) 0 %; Eosinophils % (A) 0 %; HCT 35.8 % (34.0-46.0); Lymphocytes % (A) 10 %; MCH 32.5 pg (25.0-35.0); MCHC 33.5 g/dL (31.0-37.0); MCV 96.9 fL (80.0-100.0); Mean Platelet Volume 8.3; Monocytes # (A) 0.4 k/uL (0-1.0); Monocytes % (A) 4 %; Neutrophils # (A) 8.7 k/uL (1.3-7.7); Neutrophils % (A) 85 %; Platelet Count 216 k/uL (150-450); RDW 13.2 % (11.5-15.5); WBC 10.3 k/uL (3.8-10.6)
--- NOTE | 2021-11-14 09:10 | P.HPOB ---
History of Present Illness H&P Date: 11/14/21 Chief Complaint: Term , history of previous This is a 36 year old 2 para 1001 woman with an estimated due date of 11/20/2021 who presents at 39 weeks gestation for scheduled repeat low transverse section. She has had an uncomplicated and declined trial of labor. On admission she denies regular contractions, abdominal pain, vaginal bleeding or leakage of fluids. She's had good movement. Obstetric history: Primary low transverse section in 2019 for 8 lbs. 5 oz. after arrest of descent and occiput posterior position Laboratory data: Blood type A-, antibody screen negative, rubella immune, VDRL nonreactive, hep Allie surface antigen negative, HIV negative, gonorrhea and clinic cultures negative, one-hour glucose tolerance test abnormal, 3 hour normal, group B strep negative. Review of Systems Constitutional: Reports as per HPI Past Medical History Past Medical History: No Reported History History of Any Multi-Drug Resistant Organisms: None Reported Past Surgical History: Section Additional Past Surgical History / Comment(s): [place] tooth extraction Past Anesthesia/Blood Transfusion Reactions: No Reported Reaction Past Psychological History: No Psychological Hx Reported Smoking Status: Never smoker Past Alcohol Use History: None Reported Past Drug Use History: None Reported - Past Family History Father Family Medical History: Diabetes Mellitus, GERD/Reflux Additional Family Medical History / Comment(s): Neuropathy Mother Family Medical History: Asthma, GERD/Reflux Medications and Allergies Home Medications Medication Instructions Recorded Confirmed Type Pnv No.95/Ferrous Fum/Folic AC 1 each PO DAILY 03/09/20 11/14/21 History [ Multivitamin Tablet] Allergies Allergy/AdvReac Type Severity Reaction Status Date / Time No Known Allergies Allergy Verified 11/14/21 08:26 Exam Vital Signs Temp Pulse Resp BP Pulse Ox 11/14/21 08:26 97.3 F L 97 16 113/67 97 Intake and Output 11/13/21 11/14/21 11/14/21 22:59 06:59 14:59 Other: Weight 105.233 kg This is a pleasant, visibly gravid female in no acute distress. HEENT exam is unremarkable. Her breathing is unlabored and her heart is a regular rate and rhythm. The abdomen is gravid, soft and nontender with size greater than gestational age. She has 1+ bilateral lower extremity edema. Pelvic examination is deferred. heart tones are category 1 by external monitoring. Results Result Diagrams: 11/14/21 08:30 Abnormal Lab Results - Last 24 Hours (Table) 11/14/21 Range/Units 08:30 RBC 3.70 L (3.80-5.40) m/uL Neutrophils # 8.7 H (1.3-7.7) k/uL Assessment and Plan (1) Advanced maternal age (AMA) in Current Visit: No Status: Acute Code(s): YHM9589 - SNOMED Code(s): 304487314 (2) Rh negative status during Current Visit: No Status: Acute Code(s): O26.899 - OTH RELATED CONDITIONS, UNSPECIFIED TRIMESTER; Z67.91 - UNSPECIFIED BLOOD TYPE, RH NEGATIVE SNOMED Code(s): 648261871 (3) History of Current Visit: Yes Status: Acute Code(s): Z98.891 - HISTORY OF UTERINE SCAR FROM PREVIOUS SURGERY SNOMED Code(s): 404170630 Plan: This is a 36-year-old 2 para 1 woman who is admitted at 39 weeks gestation for planned repeat low transverse section. Risks benefits and alternatives to repeat have been reviewed with the patient in detail in the office setting and again today. She declines trial of labor. She declines tubal ligation. She has known Rh- and group B strep negative. heart tones currently reassuring by external monitoring.
[2021-11-14] MEDS: LACTATED RINGERS 1,000 ML IV SCH (09:17)
[2021-11-14] MEDS ORDERED: ONDANSETRON 4 MG/2 ML VIAL ONE (10:03)
[2021-11-14] MEDS ORDERED: OXYTOCIN 10 UNIT/ML 1 ML VIAL ONE (10:03)
[2021-11-14] MEDS ORDERED: MORPHINE SULFATE (PF) 0.3 MG/0.3 ML SYR ONE (10:03)
[2021-11-14] MEDS ORDERED: PHENYLEPHRINE-0.9% NACL SYG 1,000 MCG/10 ML SYRINGE ONE (10:03)
[2021-11-14] MEDS ORDERED: NALBUPHINE 10 MG/ML (1 ML AMP) ONE (10:03)
[2021-11-14] MEDS ORDERED: diphenhydrAMINE 50 MG/ML 1 ML VIAL ONE (10:03)
[2021-11-14] MEDS ORDERED: KETOROLAC 15 MG/ML 1 ML VIAL ONE (10:03)
[2021-11-14] MEDS ORDERED: ONDANSETRON 4 MG/2 ML VIAL IVP PRN ×2 (10:45→10:58)
[2021-11-14] MEDS ORDERED: diphenhydrAMINE 50 MG/ML 1 ML VIAL IVP PRN ×3 (10:45→10:58)
[2021-11-14] MEDS ORDERED: HYDROmorphone 0.5 MG/0.5 ML SYRINGE IVP PRN (10:45)
[2021-11-14] MEDS ORDERED: NALOXONE 0.4 MG/ML 1 ML VIAL IV PRN ×2 (10:45→10:58)
[2021-11-14] MEDS ORDERED: KETOROLAC 15 MG/ML 1 ML VIAL IVP PRN (10:45)
[2021-11-14] MEDS ORDERED: HYDROmorphone 1 MG/ML 1 ML SYRINGE IVP PRN (10:58)
[2021-11-14] MEDS ORDERED: diphenhydrAMINE 50 MG CAP PO PRN (10:58)
[2021-11-14] MEDS ORDERED: METOCLOPRAMIDE 5 MG/ML 2 ML VIAL IVP PRN (10:58)
[2021-11-14] MEDS ORDERED: SIMETHICONE 80 MG CHEWABLE PO PRN (10:58)
[2021-11-14] MEDS ORDERED: diphenhydrAMINE 25 MG CAP PO PRN (10:58)
[2021-11-14] MEDS ORDERED: ZOLPIDEM 5 MG TAB PO PRN (10:58)
--- NOTE | 2021-11-14 10:58 | P.OP ---
Date of Procedure: 11/14/21 Preoperative Diagnosis: Intrauterine at 39 weeks gestation History of previous low transverse section Advanced maternal age Maternal Rh- Postoperative Diagnosis: Same Procedure(s) Performed: Repeat low transverse section Anesthesia: spinal Surgeon: Court Maxwell Soldering Technician #1: Haily Sinclair Estimated Blood Loss (ml): 390 IV fluids (ml): 600 Urine output (ml): 100 Pathology: none sent Condition: stable Disposition: floor Indications for Procedure: History of previous low transverse section, declines trial of labor Operative Findings: Female infant in the occiput transverse position with Apgars of 9 at 1 minute and 9 at 5 minutes weighing 8 lbs. 0 oz., 3620 g. Normal-appearing bilateral fallopian tubes, ovaries and uterus. Intact, three-vessel cord placenta. Description of Procedure: After the patient was met preoperatively and all questions were answered, she was taken to the operating room where spinal anesthetic was administered without incident. She was then positioned, prepped and draped in the dorsal supine position with a leftward tilt. Kasper catheter was placed. After anesthetic was confirmed adequate, a low transverse skin incision was made following the pre- existing scar. This was carried down to the underlying fascia both sharply and with the electrocautery. The fascia was then incised in the midline and extended bilaterally with the Bond scissors. The superior aspect of the fascial incision was elevated and the underlying rectus muscles dissected off sharply and with the electrocautery. The inferior aspect of the fascial incision was also elevated and the underlying rectus muscles dissected off sharply. The muscles were adherent in the midline. These were bluntly and the peritoneum was tented up with hemostats. The peritoneum was entered sharply with the Metzenbaum scissors. The peritoneal incision was extended inferiorly and superiorly with good visualization of the bladder. The bladder blade was placed. The vesicouterine peritoneum was identified, tented up and entered sharply, the bladder flap was created both sharply and digitally. A low transverse uterine incision was then made sharply and carried down to the underlying amniotic membranes. Membranes were ruptured and clear fluid was noted. The uterine incision was extended bilaterally bluntly. The infant's head was delivered from the incision without difficulty. The nose and mouth were bulb suctioned. The rest of the was delivered onto the field without difficulty. And cut and the was taken to the warmer. An intact, three-vessel cord placenta was then manually removed and the uterus was exteriorized. The uterus was cleared of all clot and debris. The uterine incision was delineated with Fernández clamps. The uterine incision was then closed in a running locked fashion with 0 Vicryl suture. A second imbricating layer of the same was placed. Additional [id number] sutures were placed where necessary along the incision for hemostasis. The uterus was then returned to the abdomen and the gutters were cleared of all clot and debris. The uterine incision was reinspected and Bovie electrocautery was utilized were necessary for hemostasis. The fascial edges, peritoneal edges and rectus muscles were inspected and Bovie electrocautery utilized were necessary for hemostasis. The fascia was then closed in a running fashion with 0 Vicryl suture. The subcuticular tissue was copiously suction irrigated and Bovie electrocautery utilized were necessary for hemostasis. 3-0 Vicryl suture was utilized to reapproximate the subcuticular tissue. The skin was then closed in a subcutaneous fashion with 4-0 Vicryl suture. All counts reported to me as correct by the operating room staff at the end of the procedure. The patient received antibiotics preoperatively and Pitocin following cord clamp. Mother and infant were both transported from the room in stable condition.
[2021-11-14] MEDS ORDERED: OXYTOCIN 30 UNITS/500 ML NS 30 UNIT in SALINE 1 500ML.BAG IV SCH (11:00)
[2021-11-14] MEDS ORDERED: METHYLERGONOVINE 0.2 MG/ML 1 ML AMP IM ONE (13:25)
[2021-11-14] MEDS: ACETAMINOPHEN TAB 500 MG TAB PO SCH ×2 (14:28→22:51)
[2021-11-14] MEDS ORDERED: Rhogam IMMUNE GLOBULIN 1,500 UNIT/1 ML IM ONE (18:27)
[2021-11-14] MEDS: SENNOSIDES-DOCUSATE SODIUM 1 EACH TAB PO SCH (20:14)
[2021-11-14] MEDS: IBUPROFEN 600 MG TAB PO SCH (20:15)
[2021-11-15] MEDS: IBUPROFEN 600 MG TAB PO SCH ×4 (03:44→23:39)
[2021-11-15] MEDS: ACETAMINOPHEN TAB 500 MG TAB PO SCH ×3 (06:04→20:14)
[2021-11-15 06:57] LABS: Basophils % (A) 0 %; Eosinophils # (A) 0.1 k/uL (0-0.7); Eosinophils % (A) 1 %; HCT 29.1 % (34.0-46.0); Lymphocytes # (A) 0.9 k/uL (1.0-4.8); Lymphocytes % (A) 8 %; MCH 33.6 pg (25.0-35.0); MCHC 33.7 g/dL (31.0-37.0); MCV 99.6 fL (80.0-100.0); Mean Platelet Volume 8.6; Monocytes # (A) 0.4 k/uL (0-1.0); Monocytes % (A) 4 %; Neutrophils # (A) 8.8 k/uL (1.3-7.7); Neutrophils % (A) 85 %; Platelet Count 207 k/uL (150-450); RBC 2.93 m/uL (3.80-5.40); RDW 13.8 % (11.5-15.5); WBC 10.4 k/uL (3.8-10.6)
[2021-11-15 07:04] LABS: HGB 9.8 gm/dL (11.4-16.0)
--- NOTE | 2021-11-15 07:56 | P.PN ---
Progress Note - Text 11/15/21 643am 36-year-old female status post with spinal Duramorph. Patient seen and evaluated for postop pain control, patient has a VAS of 2 with no complains of nausea vomiting. She has pruritus which should subside within 24 6
--- NOTE | 2021-11-15 08:20 | P.PNOBGPC ---
Subjective - Subjective Principal diagnosis: Postop day 1 Interval history: Decreased bleeding the last several times up to the bathroom. Complaining of itching however Benadryl is making her drowsy. Patient reports: Reports appetite normal, Reports voiding normally, Reports pain well controlled, Reports ambulating normally : doing well Objective - Vital Signs Latest vital signs: Vital Signs Temp Pulse Resp BP Pulse Ox 11/15/21 04:00 98 F 72 14 95/59 95 11/15/21 03:00 98 11/15/21 00:00 98.2 F 82 14 95/59 97 11/14/21 23:00 97 11/14/21 20:00 98.3 F 88 14 110/70 97 11/14/21 18:26 97 11/14/21 16:00 98.2 F 76 16 106/67 97 11/14/21 15:45 97 11/14/21 13:04 98 F 73 16 100/57 11/14/21 12:36 79 16 113/63 11/14/21 12:06 71 16 98/57 98 11/14/21 12:00 70 16 103/58 98 11/14/21 11:51 70 16 103/58 98 11/14/21 11:45 70 16 103/58 98 11/14/21 11:36 87 16 114/55 98 11/14/21 11:21 87 16 99/53 11/14/21 11:06 97.9 F 75 16 107/57 96 11/14/21 10:45 97.9 F 75 16 107/57 97 11/14/21 08:26 97.3 F L 97 16 113/67 97 Intake and Output 11/14/21 11/15/21 11/15/21 22:59 06:59 14:59 Output Total 1600 275 Balance -1600 -275 Output: Urine 1200 275 Uretheral (Kasper) 600 Estimated Blood Loss 400 Other: # Voids 1 - Exam Extremities: Present: normal, edema Abdomen: Present: normal appearance, soft. Absent: tenderness Incision: Present: normal, dry, intact Uterus: Present: normal, firm. Absent: tenderness - Labs Labs: Abnormal Lab Results - Last 24 Hours (Table) 11/14/21 11/15/21 Range/Units 08:30 06:24 RBC 3.70 L 2.93 L (3.80-5.40) m/uL Hgb 9.8 L D (11.4-16.0) gm/dL Hct 29.1 L (34.0-46.0) % Neutrophils # 8.7 H 8.8 H (1.3-7.7) k/uL Lymphocytes # 0.9 L (1.0-4.8) k/uL Assessment and Plan (1) Advanced maternal age (AMA) in Current Visit: No Status: Acute Code(s): LXY2087 - SNOMED Code(s): 716491013 (2) Rh negative status during Current Visit: No Status: Acute Code(s): O26.899 - OTH RELATED CONDITIONS, UNSPECIFIED TRIMESTER; Z67.91 - UNSPECIFIED BLOOD TYPE, RH NEGATIVE SNOMED Code(s): 342110280 (3) History of Current Visit: Yes Status: Acute Code(s): Z98.891 - HISTORY OF UTERINE SCAR FROM PREVIOUS SURGERY SNOMED Code(s): 443145887 Plan: Postop day 1 status post repeat low transverse section. She had some increased bleeding vaginally post operatively that was managed with Pitocin and a single dose of Methergine. Hemoglobin this morning is 9.8 and she is asymptomatic. She's had significant decrease in her bleeding throughout the night and this morning. Increase ambulation today and oral pain medications discussed. Possible discharge home tomorrow.
[2021-11-15] MEDS: SENNOSIDES-DOCUSATE SODIUM 1 EACH TAB PO SCH ×2 (09:49→20:15)
[2021-11-16] MEDS: ACETAMINOPHEN TAB 500 MG TAB PO SCH ×3 (03:51→09:18)
[2021-11-16] MEDS: IBUPROFEN 600 MG TAB PO SCH ×2 (05:58→09:00)
[2021-11-16] MEDS: SENNOSIDES-DOCUSATE SODIUM 1 EACH TAB PO SCH (07:59)
--- NOTE | 2021-11-16 08:16 | P.DS ---
Providers Date of admission: 11/14/21 08:01 Expected date of discharge: 11/16/21 Attending physician: Court Maxwell Primary care physician: Stated None - Discharge Diagnosis(es) (1) Advanced maternal age (AMA) in Current Visit: No Status: Acute (2) Rh negative status during Current Visit: No Status: Acute (3) History of Current Visit: Yes Status: Acute Hospital Course: This is a 36 year old 2 now para 2 woman who was admitted for scheduled repeat low transverse section at 39 weeks gestation. Please see the admission history and physical for details. She had an unremarkable . Following admission she went to the operating room where she underwent an uncomplicated repeat low transverse section. Findings at the time of surgery were significant for a liveborn female infant weighing 8 lbs. 0 oz. with Apgars of 9 at 1 minute and 9 at 5 minutes. Postoperatively she did have some increased lochia that was managed with Pitocin as well as a single dose of Methergine. No further intervention was required. Her postoperative day #1 hemoglobin was 9.8. She is asymptomatic. By postoperative day #2 she continued to very well. Her lochia was significantly decreasing. She is ambulating and voiding without difficulty. She was tolerating a general diet and her pain was well-controlled. She was therefore discharged home with routine instructions for postoperative care and follow-up. Procedures: Repeat low transverse section Patient Condition at Discharge: Good Plan - Discharge Summary New Discharge Prescriptions: New Ibuprofen [Motrin] 600 mg PO Q6H tab Acetaminophen Tab [Tylenol] 1,000 mg PO Q6H tab Continue Pnv No.95/Ferrous Fum/Folic AC [ Multivitamin Tablet] 1 each PO DAILY Discharge Medication List Pnv No.95/Ferrous Fum/Folic AC [ Multivitamin Tablet] 1 each PO DAILY 03/09/20 [History] Acetaminophen Tab [Tylenol] 1,000 mg PO Q6H tab 11/16/21 [Rx] Ibuprofen [Motrin] 600 mg PO Q6H tab 11/16/21 [Rx] Follow up Appointment(s)/Referral(s): Denys Murray MD [STAFF PHYSICIAN] - 2 Weeks Activity/Diet/Wound Care/Special Instructions: Follow-up in 2 weeks after surgery in the office. Call the office with any concerning signs or symptoms including fever greater than 101, severe abdominal pain, heavy vaginal bleeding, signs of wound infection, increased swelling or redness of the lower extremities, signs of depression. No driving for 2 weeks after surgery. No heavy lifting or vigorous activity until reevaluated in the office. No intercourse for 6 weeks after delivery. Discharge Disposition: HOME SELF-CARE
[2021-11-16 09:00] VITALS: BP 100/63; PULSE 84; RESP 18; TEMP 98.7
[2021-11-16] MEDS: LACTATED RINGERS 1,000 ML IV SCH ×7 (09:19→11:48)
== END 2021-11-16 10:15 | disposition home or self-care (01) | DRG 788 ==
LOC: 4FBP 08:01
PROVIDERS: ADMIT Obstetrics & Gynecology; ATTEND Obstetrics & Gynecology
PROC: 10D00Z1 Extraction of Products of Conception, Low, Open Approach (ICD-10-PCS; principal; 2021-11-14 10:21)
DX: O34.211 Maternal care for low transverse scar from previous cesarean delivery (principal); L29.9 Pruritus, unspecified; Z37.0 Single live birth; Z3A.39 39 weeks gestation of pregnancy; O26.893 Other specified pregnancy related conditions, third trimester; R40.0 Somnolence; R60.0 Localized edema; O62.1 Secondary uterine inertia; Z83.3 Family history of diabetes mellitus; Z82.5 Family history of asthma and other chronic lower respiratory diseases; Z82.0 Family history of epilepsy and other diseases of the nervous system; Z83.79 Family history of other diseases of the digestive system
CPT/HCPCS: 85025; 85461; 86850; 86900; 86901

== ENCOUNTER 2023-09-12 09:58 | Inpatient (IN) | payer BC ==
[2023-09-12] MEDS ORDERED: OXYTOCIN 10 UNIT/ML 1 ML VIAL IM PRN (10:33)
[2023-09-12] MEDS ORDERED: METHYLERGONOVINE 0.2 MG/ML 1 ML AMP IM PRN (10:33)
[2023-09-12] MEDS ORDERED: TRANEXAMIC 1,000 MG/100ML-NACL 1,000 MG in EMPTY BAG 1 BAG IV PRN (10:33)
[2023-09-12] MEDS ORDERED: CARBOPROST TROMETHAMINE 250 MCG/ML 1 ML AMP IM PRN (10:33)
[2023-09-12] MEDS ORDERED: miSOPROStoL 200 MCG TAB PO PRN (10:33)
[2023-09-12 10:43] LABS: Basophils % (A) 0 %; Eosinophils % (A) 1 %; HCT 36.1 % (34.0-46.0); HGB 12.1 gm/dL (11.4-16.0); Lymphocytes % (A) 13 %; MCHC 33.4 g/dL (31.0-37.0); MCV 95.8 fL (80.0-100.0); Mean Platelet Volume 10.5; Monocytes # (A) 0.4 k/uL (0-1.0); Monocytes % (A) 5 %; Neutrophils # (A) 5.8 k/uL (1.3-7.7); Neutrophils % (A) 79 %; Platelet Count 159 k/uL (150-450); RBC 3.77 m/uL (3.80-5.40); RDW 13.4 % (11.5-15.5); WBC 7.4 k/uL (3.8-10.6)
[2023-09-12] MEDS: LACTATED RINGERS 1,000 ML IV ONE (11:11)
[2023-09-12] MEDS: CITRIC ACID-SODIUM CITRATE 15 ML CUP PO ONE (11:47)
[2023-09-12] MEDS ORDERED: MORPHINE SULFATE (PF) 0.3 MG/0.3 ML SYR ONE (12:02)
[2023-09-12] MEDS ORDERED: KETOROLAC 15 MG/ML 1 ML VIAL ONE (12:02)
[2023-09-12] MEDS ORDERED: PHENYLEPHRINE-0.9% NACL SYG 1,000 MCG/10 ML SYRINGE ONE (12:02)
[2023-09-12] MEDS: OXYTOCIN 30 UNITS/500 ML NS 30 UNIT in SALINE 1 500ML.BAG IV SCH (12:52)
[2023-09-12] MEDS ORDERED: diphenhydrAMINE 50 MG CAP PO PRN (12:55)
[2023-09-12] MEDS ORDERED: METOCLOPRAMIDE 5 MG/ML 2 ML VIAL IVP PRN (12:55)
[2023-09-12] MEDS ORDERED: NALOXONE 0.4 MG/ML 1 ML VIAL IV PRN (12:55)
[2023-09-12] MEDS ORDERED: LANOLIN CREAM 1 GM TUBE TOPICAL PRN (12:55)
[2023-09-12] MEDS ORDERED: KETOROLAC 15 MG/ML 1 ML VIAL IVP PRN (12:55)
[2023-09-12] MEDS ORDERED: diphenhydrAMINE 25 MG CAP PO PRN (12:55)
[2023-09-12] MEDS ORDERED: ZOLPIDEM 5 MG TAB PO PRN (12:55)
[2023-09-12] MEDS ORDERED: diphenhydrAMINE 50 MG/ML 1 ML VIAL IVP PRN ×2 (12:55)
[2023-09-12] MEDS ORDERED: ONDANSETRON 4 MG/2 ML VIAL IVP PRN (12:55)
--- NOTE | 2023-09-12 13:01 | P.HPOB ---
History of Present Illness H&P Date: 09/12/23 Chief Complaint: 39-0/7 weeks, previous section x 2, undesired fert ility The patient is a 38-year-old 3 para 2-0-0-2 admitted at 39-0/7 weeks as established by last menstrual period and confirmed by 8-week ultrasound. She is admitted for repeat low-transverse section having had 2 previous sections. She additionally has requested intraoperative bilateral tubal occlusion with Filshie clips. She is known to be Rh- and received RhoGAM at 28 weeks. She also falls into the category of advanced maternal age and declined trisomy testing. On labor delivery, all signs are reassuring with a category 1 heart rate tracing. Group B strep status is negative. Obstetrical history: 3 para 2-0-0-2 with 2 term deliveries without complications. Current statistics are listed in history of present illness. EDC of 09/19/2023 was established by last menstrual period and confirmed by 8-week ultrasound. Laboratory workup demonstrates a blood type of a negative with a negative antibody screen. Rubella status is immune. The remainder of the laboratory workup was within normal limits. Early Glucola was elevated and followed by a normal 3-hour glucose tolerance test. Second trimester Glucola was elevated and the patient declined 3-hour glucose tolerance testing preferring instead to be treated as diabetic. Blood sugars throughout the were normal and testing was reassuring. Group B strep status is negative. Gynecologic history: Unremarkable with no history of any infections to include STDs. Review of Systems Review of systems is confined to history of present illness. Past Medical History Past Medical History: No Reported History History of Any Multi-Drug Resistant Organisms: None Reported Past Surgical History: Section Additional Past Surgical History / Comment(s): [place] tooth extraction Past Anesthesia/Blood Transfusion Reactions: No Reported Reaction Past Psychological History: No Psychological Hx Reported Smoking Status: Never smoker Past Alcohol Use History: None Reported Past Drug Use History: None Reported - Past Family History Father Family Medical History: Diabetes Mellitus, GERD/Reflux Additional Family Medical History / Comment(s): Neuropathy Mother Family Medical History: Asthma, GERD/Reflux Medications and Allergies Home Medications Medication Instructions Recorded Confirmed Type No Known Home Medications 09/12/23 09/12/23 History Allergies Allergy/AdvReac Type Severity Reaction Status Date / Time No Known Allergies Allergy Verified 11/14/21 08:26 Exam Vital Signs Temp Pulse Resp BP Pulse Ox 09/12/23 10:32 96.9 F L 82 16 133/71 97 Intake and Output 09/11/23 09/12/23 09/12/23 22:59 06:59 14:59 Other: Weight 110.223 kg In general, this is a well-developed, well-nourished white female no acute distress. Her heart has a regular rhythm and rate without murmur. Her lungs are clear to auscultation bilaterally in all mccrary. Her abdomen is gravid, non distended, has normal active bowel sounds, soft, nontender, and without any palpable masses aside from uterine fundus. Her extremities are without any cyanosis, clubbing, or significant edema and are nontender to palpation bilaterally. Digital cervical examination is deferred. Results Result Diagrams: 09/12/23 10:30 Abnormal Lab Results - Last 24 Hours (Table) 09/12/23 Range/Units 10:30 RBC 3.77 L (3.80-5.40) m/uL Assessment and Plan (1) Family planning Current Visit: Yes Status: Acute Code(s): Z30.09 - ENCOUNTER FOR OTH GENERAL CNSL AND ADVICE ON CONTRACEPTION SNOMED Code(s): 254864490 (2) Term Current Visit: Yes Status: Acute Code(s): Z34.90 - ENCNTR FOR SUPRVSN OF NORMAL , UNSP, UNSP TRIMESTER SNOMED Code(s): 80083014 (3) History of Current Visit: Yes Status: Acute Code(s): Z98.891 - HISTORY OF UTERINE SCAR FROM PREVIOUS SURGERY SNOMED Code(s): 099867119 Plan: The patient has been counseled regarding options and has agreed to undergo repeat low-transverse section. She has additionally been counseled and requested intraoperative bilateral tubal occlusion with Filshie clips. The risks and complications of these procedures have been thoroughly discussed and she has understood and agreed to proceed.
--- NOTE | 2023-09-12 13:06 | P.OP ---
Date of Procedure: 09/12/23 Preoperative Diagnosis: #1. 39-0/7 weeks, previous section x 2 #2. Undesired fertility Postoperative Diagnosis: Same Procedure(s) Performed: #1. Repeat low-transverse section #2. Intraoperative bilateral tubal occlusion with Filshie clips Anesthesia: spinal Surgeon: Denys Murray Insurance Loss Assessor #1: Haily Sinclair Estimated Blood Loss (ml): 887 IV fluids (ml): 1,000 Urine output (ml): 50 Pathology: none sent Condition: stable Disposition: floor Operative Findings: The patient was taken to the operating room where she was delivered of a viable 9 pound 2 ounce baby girl with Apgars of 9 at 1 minute and 9 at 5 minutes in the occiput anterior position. There was a loose nuchal cord x 1 which was reduced prior to delivery of the body. The placenta was delivered manually, intact, and grossly normal though it was quite large with a grossly normal three-vessel cord. The uterus, tubes, and ovaries were entirely normal to inspection. There was a moderate amount of scarring at the level of the fascia and rectus muscles, left such scarring at the bladder flap though it was reflected distally in either case. A Filshie clip was placed firmly across the isthmic portion of each fallopian tube approximately 2 to 3 cm from the cornu. Description of Procedure: The patient was prepped and draped in usual fashion after spinal anesthesia was administered by the anesthesiologist. A Pfannenstiel incision was made through pre-existing scar and extended into the abdominal cavity without difficulty. There was a moderate amount of scarring at the level of the fascia and rectus muscles which was managed without significant difficulty. The bladder peritoneum was slightly elevated and therefore elevated, incised, and reflected distally. A 2 cm incision was made in the transverse plane of the lower uterine segment to enter the uterus at which time clear fluid was noted. The incision was extended in both directions using the bandage scissors. The head was delivered up and through the incision where the nose and mouth were thoroughly suctioned. There was a loose nuchal cord reduced on the field. The remainder of the was delivered onto the field where the cord was doubly clamped, cut, and the infant passed for resuscitative measures with weight and Apgars as noted above. cord blood was collected in standard fashion. The placenta was then delivered manually, intact, and grossly normal though it was quite large with a grossly normal three-vessel cord. The uterus was exteriorized and the anterior cavity of the uterus swept of any remaining placental or membranous fragments. The margins of the uterine incision were grasped with Fernández clamps and the incision closed in a single running locking stitch of 0 chromic catgut from margin to margin. Hemostasis appeared excellent. The patient was again asked whether she wished to have permanent sterilization to which she replied in the affirmative. As a result, a Filshie clip was placed firmly across the isthmic portion of each fallopian tube approximately 2 to 3 cm from the cornu of the uterus where it each was firmly affixed. The posterior cul-de-sac was suctioned with a guard followed by a laparotomy sponge. The uterus was replaced within the abdominal cavity and the gutters swept of any remaining blood, fluid, or clot. The uterine incision was examined and found to be hemostatic. Any small points of bleeding near the bladder flap were made hemostatic with the Bovie. After ensuring hemostasis, the parietal peritoneum was loosely reapproximated and the layer of muscles examined and found to be hemostatic. The fascia was closed with a single running stitch of 0 Vicryl proceeding from the lateral margins to the midpoint. The subcutaneous tissues were irrigated, made hemostatic with the Bovie, and reapproximated with a running stitch of 3-0 plain catgut. The skin was reapproximated with a running subcuticular stitch of 4-0 Vicryl followed by half-inch Steri-Strips placed with Mastisol. Quantitative blood loss for the case was 887 mL. There were no complications. All sponge, instrument, and needle counts were correct. The patient tolerated the procedure well and proceeded to the recovery room in stable condition. Both mother and are resting comfortably in recovery.
[2023-09-12] MEDS: LACTATED RINGERS 1,000 ML IV SCH (14:03)
[2023-09-12] MEDS: ACETAMINOPHEN TAB 500 MG TAB PO SCH (16:18)
[2023-09-12] MEDS: IBUPROFEN 600 MG TAB PO SCH (20:31)
[2023-09-12] MEDS: SENNOSIDES-DOCUSATE SODIUM 1 EACH TAB PO SCH (20:32)
[2023-09-13] MEDS: Rhogam IMMUNE GLOBULIN 1,500 UNIT/1 ML IM ONE (00:06)
--- NOTE | 2023-09-13 07:53 | P.PN ---
Progress Note - Text Progress Note Date: 09/13/23 Postoperative day 1 status post section under spinal anesthesia and in trathecal Duramorph for postoperative analgesia.The patient is doing well, there is mild generalized skin itching. There are no other anesthesia related complications. The patient denies any paresthesia or weakness in the lower extremities. Patient denies any headache. Further management as per the patient primary team.
[2023-09-13 08:26] LABS: Basophils % (A) 0 %; Eosinophils % (A) 0 %; HCT 28.1 % (34.0-46.0); Lymphocytes # (A) 0.9 k/uL (1.0-4.8); Lymphocytes % (A) 11 %; MCH 32.4 pg (25.0-35.0); MCV 98.2 fL (80.0-100.0); Mean Platelet Volume 11.4; Monocytes # (A) 0.4 k/uL (0-1.0); Monocytes % (A) 4 %; Neutrophils % (A) 84 %; Platelet Count 127 k/uL (150-450); RBC 2.87 m/uL (3.80-5.40); RDW 13.3 % (11.5-15.5); WBC 8.4 k/uL (3.8-10.6)
[2023-09-13 08:29] LABS: HGB 9.3 gm/dL (11.4-16.0)
--- NOTE | 2023-09-13 08:47 | P.PNOBGPC ---
Subjective - Subjective Patient reports: Reports appetite normal, Reports voiding normally, Reports pain well controlled, Reports ambulating normally : doing well Objective - Vital Signs Latest vital signs: Vital Signs Temp Pulse Resp BP Pulse Ox 09/13/23 08:00 98.2 F 74 16 115/72 98 09/13/23 03:30 97.3 F L 72 16 94/62 97 09/12/23 20:00 98.0 F 81 16 112/76 99 09/12/23 16:00 97.1 F L 62 18 102/54 98 09/12/23 14:53 96.4 F L 61 18 103/55 98 09/12/23 14:38 96.4 F L 63 18 112/57 98 09/12/23 14:23 96.3 F L 64 18 91/50 98 09/12/23 14:08 96.3 F L 62 18 98/56 98 09/12/23 13:53 96.5 F L 65 18 92/52 98 09/12/23 13:38 96.5 F L 78 18 93/51 98 09/12/23 13:23 96.7 F L 68 18 91/55 97 09/12/23 13:08 96.4 F L 68 18 97/56 99 09/12/23 12:53 97.8 F 66 18 98/57 96 09/12/23 10:32 96.9 F L 82 16 133/71 97 Intake and Output 09/12/23 09/13/23 09/13/23 22:59 06:59 14:59 Output Total 675 500 Balance -675 -500 Output: Urine 675 500 Uretheral ([place]) 225 Other: Voiding Method Indwelling Catheter # Voids 0 1 - Exam Extremities: Present: normal, edema (1+ bilateral lower extremity edema) Abdomen: Present: normal appearance, soft. Absent: distention, tenderness Incision: Present: normal, dry, intact Uterus: Present: normal, firm (The uterine fundus is tonic and minimally tender below the umbilicus.) - Labs Labs: Abnormal Lab Results - Last 24 Hours (Table) 09/12/23 09/13/23 Range/Units 10:30 07:56 RBC 3.77 L 2.87 L (3.80-5.40) m/uL Hgb 9.3 L D (11.4-16.0) gm/dL Hct 28.1 L (34.0-46.0) % Plt Count 127 L (150-450) k/uL Assessment and Plan (1) Family planning Current Visit: Yes Status: Acute Code(s): Z30.09 - ENCOUNTER FOR OT GENERAL CNSL AND ADVICE ON CONTRACEPTION SNOMED Code(s): 562922825 (2) Term Current Visit: Yes Status: Acute Code(s): Z34.90 - ENCNTR FOR SUPRVSN OF NORMAL , UNSP, UNSP TRIMESTER SNOMED Code(s): 62580318 (3) History of Current Visit: Yes Status: Acute Code(s): Z98.891 - HISTORY OF UTERINE SCAR FROM PREVIOUS SURGERY SNOMED Code(s): 757892558 (4) Status post section Current Visit: Yes Status: Acute Code(s): Z98.891 - HISTORY OF UTERINE SCAR FROM PREVIOUS SURGERY SNOMED Code(s): 661299741 Plan: Continue routine and postoperative care. I have encouraged the patient to ambulate in the hallways routinely. I would anticipate discharge home tomorrow pending no complications.
[2023-09-13 13:17] LABS: RBC Morphology Normal
[2023-09-14] MEDS: SIMETHICONE 80 MG CHEWABLE PO PRN (03:07)
[2023-09-14 08:51] VITALS: BP 108/73; PULSE 100; RESP 16; TEMP 98.2
--- NOTE | 2023-09-14 09:37 | P.PN ---
Progress Note - Text 09/12/23 646am 38-year-old female status post . Patient seen and evaluated for postop pain control, patient has a VAS of 2 with no complaints of nausea vomiting or pruritus
--- NOTE | 2023-09-14 10:52 | P.DS ---
Providers Date of admission: 09/12/23 09:58 Expected date of discharge: 09/14/23 Attending physician: Denys Murray Primary care physician: Stated None - Discharge Diagnosis(es) (1) Family planning Current Visit: Yes Status: Acute (2) Term Current Visit: Yes Status: Acute (3) History of Current Visit: Yes Status: Acute (4) Status post section Current Visit: Yes Status: Acute Hospital Course: The patient is a 38-year-old 3 para 2-0-0-2 admitted at 39-0/7 weeks by good dating parameters. She is admitted for repeat low-transverse section with intraoperative bilateral tubal occlusion using Filshie clips. She is Rh- and received RhoGAM at 28 weeks. She also fell into the category of advanced maternal age but declined trisomy testing. On labor delivery, all signs are reassuring with a category 1 heart rate tracing and group B strep status is negative. She was taken to the operating room where she was delivered of a viable 9 pound 2 ounce baby girl with Apgars of 9 at 1 minute and 9 at 5 minutes in an uncomplicated fashion. Her and postoperative course was unremarkable with vital signs remaining stable and her temperature was afebrile throughout. She was deemed stable for discharge on and postoperative day #2 and was discharged home to follow-up in the office in 2 weeks for an incision check in 6 weeks routinely. Discharge instructions included calling for any significantly increased bleeding or foul- smelling lochia, significantly increased fever or abdominal pain, perineal complaints, breast complaints, incisional complaints, or anything else that concerned her. She was additionally instructed to have nothing in the vagina for at least 6 weeks time to include intercourse and to abstain from any heavy lifting over the same period of time. She was lastly instructed to do no driving until off of all pain medications or 2 weeks time, whichever came first. She understood her instructions and agrees to follow-up as noted above. Discharge medications included [id number] analgesic pain medications as well as continued vitamins as she has opted to breast-feed. She was provided a prescription for oxycodone 5 mg, 1-2 p.o. every 6 hours as needed pain, #20 dispensed with no refills. Maternal blood type is A- and cord blood was sent for evaluation for the necessity of RhoGAM prior to discharge. Rubella status is immune. Discharge hemoglobin and hematocrit were 9.3 and 28.1 respectively. As result, she was encouraged to use iron sulfate daily for the next month rebuild her hemoglobin. Procedures: #1. Repeat low-transverse section #2. Intraoperative bilateral tubal occlusion with Filshie clips Patient Condition at Discharge: Stable Plan - Discharge Summary New Discharge Prescriptions: No Action No Known Home Medications Discharge Medication List No Known Home Medications 09/12/23 [History] Follow up Appointment(s)/Referral(s): Denys Murray MD [STAFF PHYSICIAN] - 09/25/23 11:00 am (Post Appointment 10-24-2023 at 1:45pm) Discharge Disposition: HOME SELF-CARE
== END 2023-09-14 12:45 | disposition home or self-care (01) | DRG 785 ==
LOC: 4FBP 09:58
PROVIDERS: ADMIT Obstetrics & Gynecology; ATTEND Obstetrics & Gynecology
PROC: 3E0234Z Introduction of Serum, Toxoid and Vaccine into Muscle, Percutaneous Approach (ICD-10-PCS; principal; 2023-09-12 12:00)
PROC: 10D00Z1 Extraction of Products of Conception, Low, Open Approach (ICD-10-PCS; principal; 2023-09-12 12:00)
PROC: 0UL70CZ Occlusion of Bilateral Fallopian Tubes with Extraluminal Device, Open Approach (ICD-10-PCS; principal; 2023-09-12 12:00)
DX: O34.211 Maternal care for low transverse scar from previous cesarean delivery (principal); Z30.2 Encounter for sterilization; O69.81X0 Labor and delivery complicated by cord around neck, without compression, not applicable or unspecified; O26.893 Other specified pregnancy related conditions, third trimester; Z67.11 Type A blood, Rh negative; O99.73 Diseases of the skin and subcutaneous tissue complicating the puerperium; L29.9 Pruritus, unspecified; Z3A.39 39 weeks gestation of pregnancy; Z37.0 Single live birth
CPT/HCPCS: 85025; 85461; 86850; 86900; 86901